=== PATIENT | male | born 1960 | race Caucasian/White ===

== ENCOUNTER → 2020-11-15 | Day surgery (SDC) | payer OTHER ==
[2020-11-13 11:41] VITALS: BMI 25.8
[~2020-11-15] MED LIST: LACTATED RINGERS 1,000 ML IV SCH; LIDOCAINE 1% (10MG/ML) FOR IV START INTRADERMA PRN; LIDOCAINE 1% INJ 10MG/ML (20 ML MDV) ONE; PROPOFOL 10 MG/ML 20 ML VIAL IV ONE
[2020-11-15 08:28] VITALS: TEMP 97.1
--- NOTE | 2020-11-15 09:28 | P.GSHP ---
History of Present Illness H&P Date: 11/15/20 Chief Complaint: Screening colonoscopy This is a 60-year-old male presents for screening colonoscopy today. He has history of diverticulosis. Past Medical History Past Medical History: Skin Disorder Additional Past Medical History / Comment(s): "pre cancer skin lesions' History of Any Multi-Drug Resistant Organisms: None Reported Past Surgical History: Orthopedic Surgery Additional Past Surgical History / Comment(s): colonoscopy, rt shoulder arthroscopy, Past Anesthesia/Blood Transfusion Reactions: No Reported Reaction Smoking Status: Never smoker - Past Family History Mother Family Medical History: No Reported History Medications and Allergies Home Medications Medication Instructions Recorded Confirmed Type Multivitamins, Thera [Multivitamin 1 tab PO DAILY 11/13/20 11/13/20 History (formulary)] Allergies Allergy/AdvReac Type Severity Reaction Status Date / Time mold,cat hair Allergy Unknown Uncoded 11/13/20 11:33 Surgical - Exam Vital Signs Temp Pulse Resp BP Pulse Ox 97.1 F L 68 16 141/78 97 11/15/20 08:20 11/15/20 08:20 11/15/20 08:20 11/15/20 08:20 11/15/20 08:20 - General well developed, well nourished, no distress - Eyes PERRL - ENT normal pinna - Neck no masses - Respiratory normal expansion - Cardiovascular Rhythm: regular - Abdomen Abdomen: soft, non tender Assessment and Plan Assessment: We'll perform screening colonoscopy.
--- NOTE | 2020-11-15 09:41 | P.OP ---
Date of Procedure: 11/15/20 Preoperative Diagnosis: Screening colonoscopy History of diverticulitis Postoperative Diagnosis: Incomplete colonoscopy Diverticulosis Procedure(s) Performed: Colonoscopy Anesthesia: MAC Surgeon: Emile Amaya Pathology: none sent Condition: stable Disposition: PACU Description of Procedure: The patient's placed on the endoscopy table lateral position. He received IV sedation. Digital rectal exam was performed which revealed no abnormalities. The fundus clot scope was then placed patient anus. Scope then passed through the sigmoid colon secondary to scarring and sigmoid colon. This point scope withdrawn. Pediatric scope was placed in the rectum. And then the sigmoidoscope was advanced. The pediatric sigmoid scope could not be maneuvered through the sigmoid colon. This was withdrawn. Patient's scheduled for a barium enema
[2020-11-15 11:40] VITALS: BP 121/71; PULSE 67; RESP 17
--- NOTE | 2020-11-15 13:01 | FL ---
EXAMINATION TYPE: FL barium enema w air contrast DATE OF EXAM: 11/15/2020 COMPARISON: NONE HISTORY: Incomplete colonoscopy TECHNIQUE: A double contrast barium enema study is performed. A total of 3 minutes 52 seconds of fl uoroscopic time was utilized during procedure and 27 images obtained. FINDINGS: Sinter Machine Operator view of the abdomen shows overall non-obstructive bowel gas pattern. No evidence of any mass or polyp, obstructing or constricting lesion throughout the colon. Scattered diverticular disease is present. Redundancy of the sigmoid colon may limit evaluation at this level. Difficult to exclude mucosal lesion, follow-up especially in the sigmoid colon and cecum, extensive c ontrast within the cecum. The appendix fills with contrast. IMPRESSION: Diverticulosis. There are some limitations to the exam.
== END | disposition home or self-care (01) ==
LOC: ORWHC2ENDO 07:59
PROVIDERS: ATTEND Surgery
DX: Z12.11 Encounter for screening for malignant neoplasm of colon (principal); K57.30 Diverticulosis of large intestine without perforation or abscess without bleeding; L98.9 Disorder of the skin and subcutaneous tissue, unspecified; Z98.890 Other specified postprocedural states; Z91.048 Other nonmedicinal substance allergy status
CPT/HCPCS: 74280; J2001; J2704; G0121; 45378